=== PATIENT | male | born 1940 | race Caucasian/White ===

== ENCOUNTER → 2016-10-01 | Day surgery (SDC) | payer MEDICARE, OTHER ==
[~2016-10-01] VITALS: Ht 188 cm; Wt 77.0 kg
[~2016-10-01] MED LIST: ASPIR 8181 MG PO; AZELASTINE137 MCG/0. NOSE; CLARITIN10 MG PO; DYMISTA NASAL S23 GM NOSE; FINASTERIDE5 MG PO; FLONASE 50 MCG/16 GM NOSE; FOLIC ACID 40400 MCG PO; IRON325 M1 PO; PULMICORT FLE180 MCG INH; SELENIUM200 MC2 PO; TOPROL XL50 MG PO; TYLENOL WITH C1 EACH PO; VITAMIN B-1250 MG PO; VITAMIN B122500 MCG PO; VITAMIN D-32000 UNI1 PO; ZINC50 M1 PO
--- NOTE | ~2016-10-01 | OR ---
PATIENT'S NAME: CHRISTOS HORNE [facility] AGE: 76 Y [address] ROOM: [place], [place] [address] LOCATION: [facility] ADMIT DATE: 10/01/2016 OR/Procedure Report DISCHARGE DATE: FAMILY PHYSICIAN: Yoandy Wagner MD ATTENDING PHYSICIAN: Johnny Dickens V SURGEON: Johnny Dickens MD PICTURE FRAMES INSPECTOR: DATE OF PROCEDURE: 10/01/2016 PREOPERATIVE DIAGNOSIS: Left posterior vocal cord lesion. POSTOPERATIVE DIAGNOSIS: Left posterior vocal cord lesion. OPERATION/PROCEDURE: Direct laryngoscopy with biopsy and CO2 laser of the left true vocal cord lesion. ANESTHESIA: General endotracheal anesthesia. ESTIMATED BLOOD LOSS: Minimal. COMPLICATIONS: None. DESCRIPTION OF PROCEDURE: The patient was taken to the operating room, laid in supine position with general endotracheal anesthesia. Table was rotated 90 degrees to the right. Shoulder roll placed. Head was placed in sniffing position. Mouth guard was placed in the upper dentition. Laryngoscope was inserted within the oral cavity, directed down the left lateral pharyngeal wall. Epiglottis was lifted anteriorly. Vocal cords were visualized. There was noted to have inflammatory lesion occupying the posterior 1/3 of the left true vocal cord overlying the arytenoid. Laryngoscope was suspended. Lesion was grasped with microforceps reflected medially. With microdissection scissors, the lesion was removed and biopsy was sent for pathology. Epinephrine-soaked pledgets were placed in the immediate subglottis. The patient was prepped and draped in the usual sterile fashion using wet towels. O2 is at room air 21%. CO2 laser was then hook to the microscope. The posterior 1/3 and/or lesion was vaporized using a CO2 laser at 6 more continuous mode. The patient tolerated the procedure well. Hemostasis was adequate. Cords were sprayed with LTA lidocaine solution. Pledgets were removed. Laryngoscope was removed. The patient was aroused, extubated, and discharged from the operating room to recovery room in satisfactory condition. JOHNNY DICKENS MD PATIENT'S NAME: COLEEN [facility] AGE: 76 Y [address] ROOM: [place], [place] [address] LOCATION: [facility] ADMIT DATE: 10/01/2016 OR/Procedure Report DISCHARGE DATE: FAMILY PHYSICIAN: Yoandy Wagner MD ATTENDING PHYSICIAN: Johnny Dickens/gaurav /[id number] d: 10/01/161930 t: 10/08/16 0723, OPERATIVE SUMMARY
--- NOTE | ~2016-10-01 | OR ---
PATIENT'S NAME: CHRISTOS HORNE [facility] AGE: 76 Y [address] ROOM: [place] [id number] LOCATION: [facility] [place] [facility] ADMIT DATE: 10/01/2016 OR/Procedure Report DISCHARGE DATE: FAMILY PHYSICIAN: Yoandy Wagner MD ATTENDING PHYSICIAN: Johnny Dickens V SURGEON: Johnny Dickens MD PRODUCTION AIDE: Frida Pan PA-C. DATE OF PROCEDURE: 10/01/2016 PREOPERATIVE DIAGNOSIS: Left posterior true vocal cord lesion. POSTOPERATIVE DIAGNOSIS: Left posterior true vocal cord lesion. OPERATION/PROCEDURE: CO2 microlaryngoscopy with biopsy. ESTIMATED BLOOD LOSS: Minimal. COMPLICATIONS: None. ANESTHESIA: General endotracheal anesthesia. ESTIMATED BLOOD LOSS: Minimal. DESCRIPTION OF PROCEDURE: The patient was taken to the operating room, laid in supine position with general endotracheal anesthesia with a six CO2 laser tube. The tube was rotated 90 degrees to the right. Shoulder roll placed. Head was placed in a sniffing position. Bite block was placed in the upper dentition. Laryngoscope inserted within the oropharynx, directed down the right lateral pharyngeal wall. Epiglottis was lifted anteriorly. The visualization cords revealed inflammatory lesion occupying the posterior 1/3rd of the left true vocal cord. The laryngoscope was suspended. Epinephrine- soaked pledgets were placed in the immediate subglottic region. A platform suction was then placed underneath the left cord. The cord was then reflected superiorly. The patient had inflammatory lesion occupying the posterior 1/3rd of the left true vocal cord. This was grasped using a straight biting forceps. The lesion was circumferentially excised using a microdissection scissors. Specimen was removed and sent for pathology. The laser platform was then placed inferior to the cord. The cord was reflected anteriorly. The CO2 laser at 6 more continuous mode was used to laser the posterior 1/3rd of the cord. Hemostasis was adequate. The throat was sprayed with lidocaine solution. The patient was aroused, extubated, and discharged from the operating room to the recovery in satisfactory condition. PATIENT'S NAME: COLEEN CHRISTOS Dennis [facility] AGE: 76 Y [address] ROOM: [place] [id number] LOCATION: [facility] [place] ADMIT DATE: 10/01/2016 OR/Procedure Report DISCHARGE DATE: FAMILY PHYSICIAN: Yoandy Wagner MD ATTENDING PHYSICIAN: Johnny Dickens V JOHNNY DICKENS MD TVC/modl /[id number] CC: Yoandy Wagner MD d: 10/01/16 1157 t: 10/08/16 0721, OPERATIVE SUMMARY
== END | disposition disaster alternative care site (69) ==
LOC: GPOC 09-25 11:00 → GSDC 05:52 → GPOC 07:00 → GSDC 11:00 → GPOC 11:00
PROC: 0CBV8ZX Excision of Left Vocal Cord, Via Natural or Artificial Opening Endoscopic, Diagnostic (ICD-10-PCS; principal; 2016-10-01)
DX: J38.3 Other diseases of vocal cords (principal); I48.92 Unspecified atrial flutter; I48.91 Unspecified atrial fibrillation; I34.0 Nonrheumatic mitral (valve) insufficiency; M10.9 Gout, unspecified; G43.909 Migraine, unspecified, not intractable, without status migrainosus; J20.9 Acute bronchitis, unspecified; Z98.890 Other specified postprocedural states; Z88.2 Allergy status to sulfonamides; Z88.5 Allergy status to narcotic agent; Z88.8 Allergy status to other drugs, medicaments and biological substances; Z79.82 Long term (current) use of aspirin; Z79.899 Other long term (current) drug therapy
CPT/HCPCS: J0171; J1100; J7120